=== PATIENT | female | born 2000 | race Caucasian/White ===

== ENCOUNTER 2019-03-07 09:05 | Emergency (ER) | payer SELFPAY ==
--- NOTE | 2019-03-07 09:49 | ER Document Report ---
ED Medical Screen (RME) - General Chief Complaint: Abdominal Pain Stated Complaint: STOMACH PAIN Time Seen by Provider: 03/07/19 09:41 Mode of Arrival: Ambulatory Information source: Patient TRAVEL OUTSIDE OF THE U.S. IN LAST 30 DAYS: No - HPI Patient complains to provider of: [facility] ABDO PAIN Notes: 03/07/19 09:47 Patient is here with complaints of abdominal pain. Patient is 17 weeks . This is her first . She has had ultrasounds in the past. Last ultrasound was at 12 weeks. She denies any specific complaints other than a possible small subchorionic hemorrhage in the past. States this morning she woke up with right lower abdominal pain that radiates into her right back. She has had nausea vomiting this morning. No fever. No diarrhea. She has had her appendix removed in the past. No history of kidney stones. Exam Nontoxic, no distress. Lungs clear and equal. Heart sounds normal. Tenderness to palpation of the right upper and lower abdomen with mild voluntary guarding. Right-sided CVA tenderness to percussion. Plan CBC, CMP, lipase, RhoGam work-up, urinalysis, quantitative hCG, pelvic ultrasound to assess the , right upper quadrant ultrasound to assess other causes of pain. An initial examination was made on the patient as part of the triage process, and it was determined a more comprehensive evaluation was necessary. Initial labs were ordered and patient was transferred to another provider in the ED who assumed care and finished evaluation and plan. - Related Data Allergies/Adverse Reactions: No Known Allergies Allergy (Verified 03/07/19 09:37) Physical Exam - Vital signs Vitals: Temp Pulse Resp BP Pulse Ox 97.8 F 82 18 109/64 98 03/07/19 09:20 03/07/19 09:20 03/07/19 09:20 03/07/19 09:20 03/07/19 09:20 Course - Vital Signs Vital signs: Temp Pulse Resp BP Pulse Ox 97.8 F 82 18 109/64 98 03/07/19 09:20 03/07/19 09:20 03/07/19 09:20 03/07/19 09:20 03/07/19 09:20
[2019-03-07 10:33] LABS: ABSOLUTE EOSINOPHILS # (AUTO) 0.2 10^3/uL (0.0-0.6); ABSOLUTE LYMPHOCYTES (AUTO) 1.3 10^3/uL (0.5-4.7); ABSOLUTE MONOCYTES (AUTO) 0.6 10^3/uL (0.1-1.4); ABSOLUTE NEUT (AUTO) 8.2 10^3/uL (1.7-8.2); BASOPHILS % (AUTO) 0.2 % (0-2); EOSINOPHILS % (AUTO) 1.5 % (0-6); HEMATOCRIT 38.5 % (36.0-47.0); HEMOGLOBIN 13.2 g/dL (12.0-15.5); LYMPHOCYTES % (AUTO) 12.5 % (13-45); MEAN CORPUSCULAR HEMOGLOBIN 30.3 pg (27.0-33.4); MEAN CORPUSCULAR HGB CONC 34.3 g/dL (32.0-36.0); MEAN CORPUSCULAR VOLUME 88 fl (80-97); MONOCYTES % (AUTO) 6.1 % (3-13); PLATELET COUNT 207 10^3/uL (150-450); RED BLOOD COUNT 4.36 10^6/uL (3.72-5.28); RED CELL DISTRIBUTION WIDTH 14.3 % (11.5-14.0); SEGMENTED NEUTROPHILS % (AUTO) 79.7 % (42-78); TOTAL CELLS COUNTED % (AUTO) 100 %; WHITE BLOOD COUNT 10.2 10^3/uL (4.0-10.5)
[2019-03-07 10:43] LABS: APPEARANCE,URINE CLOUDY; BILIRUBIN,URINE NEGATIVE (NEGATIVE); COLOR,URINE YELLOW; GLUCOSE, URINE NEGATIVE (NEGATIVE); KETONES,URINE NEGATIVE (NEGATIVE); LEUKOCYTE ESTERASE,URINE SMALL (NEGATIVE); NITRITE,URINE NEGATIVE (NEGATIVE); PROTEIN,URINE NEGATIVE (NEGATIVE); URINE SPECIFIC GRAVITY 1.016; UROBILINOGEN,URINE NEGATIVE mg/dL (<2.0)
--- NOTE | 2019-03-07 10:52 | ER Document Report ---
ED GI/ - General Chief Complaint: Abdominal Pain Stated Complaint: STOMACH PAIN Time Seen by Provider: 03/07/19 09:41 Mode of Arrival: Ambulatory Notes: 16-year-old female G1 at 17 weeks by ultrasound and presents today with the onset around 6 AM of some right middle abdominal discomfort. Mild radiation to the back. No fevers, dysuria, vaginal bleeding. Not associated with eating. No previous symptomatology to the similar location. Her TECHNICAL PRODUCT MANAGER care has been provided in [place] with a recent move here with her family. She denies any other aggravating or relieving factors. No vomiting or diarrhea. TRAVEL OUTSIDE OF THE U.S. IN LAST 30 DAYS: No - Related Data Allergies/Adverse Reactions: No Known Allergies Allergy (Verified 03/07/19 09:37) Past Medical History - General Information source: Patient - Social History Smoking Status: Never Smoker Chew tobacco use (# tins/day): No Frequency of alcohol use: None Drug Abuse: None Family History: Reviewed & Not Pertinent Patient has suicidal ideation: No Patient has homicidal ideation: No Pulmonary Medical History: Reports: Hx Asthma Neurological Medical History: Reports: Hx Migraine Renal/ Medical History: Denies: Hx Peritoneal Dialysis Psychiatric Medical History: Reports: Hx Depression Past Surgical History: Reports: Hx Appendectomy Review of Systems - Review of Systems Constitutional: denies: Fever EENT: denies: Eye discharge, Nose discharge Respiratory: denies: Short of breath Gastrointestinal: denies: Vomiting Genitourinary: denies: Dysuria Musculoskeletal: denies: Leg swelling Skin: Other - no hives. denies: Rash Neurological/Psychological: Other - no slurred speech -: Yes All other systems reviewed and negative Physical Exam - Vital signs Vitals: Temp Pulse Resp BP Pulse Ox 97.8 F 82 18 109/64 98 03/07/19 09:20 03/07/19 09:20 03/07/19 09:20 03/07/19 09:20 03/07/19 09:20 Notes: Reviewed vital signs and nursing note as charted by RN. CONSTITUTIONAL: Alert and oriented and responds appropriately to questions. Well-appearing; well-nourished HEAD: Normocephalic; atraumatic CARD: Regular rate and rhythm; no murmurs; symmetric distal pulses RESP: Normal chest excursion without splinting or tachypnea; breath sounds clear and equal bilaterally; no wheezes, no rhonchi, no rales ABD/GI: Normal bowel sounds; soft, mild tender to palpation of the right mid abdomen. No rebound or guarding; palpable fundus consistent with dates BACK: The back appears normal and is non-tender to palpation EXT: Normal ROM in all joints; non-tender to palpation; no edema SKIN: No acute lesions noted NEURO: CN 2-12 intact; 5/5 bilateral upper and lower extremity strength with sensation intact to light touch PSYCH: The patient's mood and manner are appropriate. Grooming and personal hygiene are appropriate. Course - Re-evaluation Re-evalutation: 03/07/19 10:51 Given the history and physical examination, we will obtain basic labs, ultrasound of the fetus, ultrasound of the right upper quadrant, obtain a urine analysis, and reassess. Vital signs are stable. Patient does not have an appendix with an appendectomy 2 years ago. I would like to evaluate for the possibility of gallbladder pain, pancreatitis, urinary tract infection, uterine rupture or pathology, or any other acute problems. Patient has had no vaginal bleeding. 03/07/19 13:10 Labs and urine analysis as recorded. Pelvis ultrasound as recorded. Exam is im proved. Transabdominal ultrasound is pending. Urine culture has been sent. 03/07/19 13:56 Labs, urinalysis, and imaging as recorded. Vital signs are stable. I will send a urine culture and start the patient on a short course of Macrobid with strict return precautions. Patient's pain is improved. I do believe the possibility of round ligament pain to be likely given the patient's first with a history of appendectomy. - Vital Signs Vital signs: Temp Pulse Resp BP Pulse Ox 98.0 F 70 18 90/46 L 100 03/07/19 13:55 03/07/19 13:55 03/07/19 13:55 03/07/19 13:55 03/07/19 13:55 - Laboratory Result Diagrams: 03/07/19 10:15 03/07/19 10:15 Laboratory results interpreted by me: 03/07/19 03/07/19 03/07/19 10:00 10:15 10:15 RDW 14.3 H Seg Neutrophils % 79.7 H Lymphocytes % 12.5 L Sodium 136.4 L Chloride 108 H Creatinine 0.45 L Glucose 71 L Albumin 3.6 L Beta HCG, Quant 27255.00 H Ur Leukocyte Esterase SMALL H Discharge - Discharge Clinical Impression: Right lateral abdominal pain Qualifiers: Weeks of gestation: 17 weeks Qualified Code(s): Z3A.17 - 17 weeks gestation of Condition: Good Disposition: HOME-ASSISTED LIVING Additional Instructions: Come back immediately for any increased pain, change in location or quality of pain, fevers or vomiting, or any other acute problems. Please follow-up with your TECHNICAL PRODUCT MANAGER for reassessment as well as the urine culture as we have discussed. Prescriptions: Nitrofurantoin/Nitrofuran Mac [Macrobid 100 mg Capsule] 1 tab PO BID #20 capsule
[2019-03-07 11:01] LABS: ALANINE AMINOTRANSFERASE 17 U/L (5-35); ALBUMIN 3.6 g/dL (3.7-5.6); ALKALINE PHOSPHATASE 52 U/L (50-135); ANION GAP 6 (5-19); ASPARTATE AMINO TRANSFERASE 24 U/L (5-30); BILIRUBIN,DIRECT 0.3 mg/dL (0.0-0.4); BILIRUBIN,TOTAL 0.5 mg/dL (0.2-1.3); BLOOD UREA NITROGEN 9 mg/dL (7-20); CALCIUM 9.2 mg/dL (8.4-10.2); CARBON DIOXIDE 22 mmol/L (22-30); CHLORIDE 108 mmol/L (98-107); GLUCOSE 71 mg/dL (75-110); LIPASE 78.9 U/L (23-300); POTASSIUM 4.4 mmol/L (3.6-5.0); SODIUM 136.4 mmol/L (137-145); TOTAL PROTEIN 6.7 g/dL (6.3-8.2)
--- NOTE | 2019-03-07 13:02 | RADIOLOGY REPORT (SQ) ---
EXAM DESCRIPTION: U/S OB 14+ TA/1 GEST W/DOPPLER COMPLETED DATE/TIME: 03/07/2019 12:51 pm REASON FOR STUDY: PREG 17 WEEKS, RLQ PAIN COMPARISON: None. TECHNIQUE: Static and Dynamic grayscale imaging performed of gravid uterus using transabdominal appr oach. Additional selected color Doppler and spectral images recorded. All stored on PACS. LIMITATIONS: None. FINDINGS: FETUSES SEEN:1 EGA: 17 weeks 2 days Calculated using BPD,FL,HC,AC documented on images. No discrepancy with clinica l dates. JANINE: 08/13/2019 EFW: 196 grams PERCENTILE: Not applicable. Fetus less than or equal to 20 weeks gestation. ASHOK: Adequate amount. PLACENTA: Anterior. GRADE: I PRESENTATION: Variable. ANATOMY: HEART RATE: 132 beats per minute. FOUR CHAMBER HEART: Not visualized. THREE VESSEL CORD: Not visualized. CORD INSERTION: Visualized. KIDNEYS AND BLADDER: Not visualized. STOMACH: Visualized. Appears normal. SPINE: Normal as visualized. BRAIN AND LATERAL VENTRICLES: Visualized. Appear normal. OTHER: MATERNAL ADNEXA: Maternal ovaries not visualized. CERVICAL LENGTH: 2.3 cm. Closed. OTHER: Maternal appendix not visualized. IMPRESSION: LIVING INTRAUTERINE . ESTIMATED GESTATIONAL AGE 17 weeks 2 days. NO VISUALIZED ANOMALIES. Trimester of : Second trimester - 13 weeks 1 day to 27 weeks 6 days. TECHNICAL DOCUMENTATION: JOB ID: [id number] [employer]- All Rights Reserved Reading location - IP/workstation name: [email or web address]
[2019-03-07] MEDS ORDERED: ACETAMINOPHEN 325 MG TABLET PO ONE (13:16)
--- NOTE | 2019-03-07 13:24 | RADIOLOGY REPORT (SQ) ---
EXAM DESCRIPTION: U/S ABDOMEN LIMITED W/O DOP COMPLETED DATE/TIME: 03/07/2019 12:58 pm REASON FOR STUDY: RUQ PAIN, FLANK PAIN COMPARISON: None. TECHNIQUE: Dynamic and static grayscale images acquired of the abdomen and recorded on PACS. Giselleo abdulaziz selected color Doppler and spectral images recorded. LIMITATIONS: None. FINDINGS: PANCREAS: No masses. Visualized pancreatic duct normal caliber. LIVER: No masses. Echotexture normal. LIVER VASCULATURE: Normal directional flow of the main portal vein and hepatic veins. GALLBLADDER: No stones. Normal wall thickness. No pericholecystic fluid. ULTRASOUND-DETECTED ALVARADO'S SIGN: Positive. INTRAHEPATIC DUCTS AND COMMON DUCT: CBD and intrahepatic ducts normal caliber. No filling defects. INFERIOR VENA CAVA: Normal flow. AORTA: No aneurysm. RIGHT KIDNEY: Normal size. Normal echogenicity. No solid or suspicious masses. No hydronephrosis. No calcifications. PERITONEAL AND RIGHT PLEURAL SPACE: No ascites or effusions. OTHER: No other significant findings. IMPRESSION: No pathology identified however the Alvarado's sign is listed as positive because of the tenderness right upper quadrant and right abdomen. TECHNICAL DOCUMENTATION: JOB ID: [id number] [employer]- All Rights Reserved Reading location - IP/workstation name: [email or web address]
[2019-03-07 13:56] VITALS: BP 90/46
[2019-03-07] MEDS ORDERED: NITROFURANTOIN MONOHYD/M-CRYST 100 MG CAPSULE PO ONE (13:59)
== END 2019-03-07 14:17 | disposition home health service (06) ==
LOC: ER 09:05
DX: O26.92 Pregnancy related conditions, unspecified, second trimester (principal); R10.9 Unspecified abdominal pain; Z3A.17 17 weeks gestation of pregnancy
CPT/HCPCS: 99284; 86900; 86901; 36415; 87086; 84702; 83690; 85025; 80053; 81001; 76805; 76705; 93976; J8499

== ENCOUNTER 2019-05-19 11:12 | Emergency (ER) | payer MEDICAID ==
[2019-05-19 11:16] VITALS: BP 100/67
--- NOTE | 2019-05-19 11:30 | ER Document Report ---
ED Medical Screen (RME) - General Chief Complaint: Abdominal Pain Stated Complaint: ABDOMINAL PAIN Time Seen by Provider: 05/19/19 11:21 Mode of Arrival: Ambulatory Information source: Patient Notes: Patient presents emergency department with right upper quad right flank pain for the past week.. Patient is 27 weeks G1, P0. Patient reports she vomited yesterday. Reports urinary frequency as usual. Denies vaginal bleeding denies vaginal discharge. Patient has just moved here from [place]. Does not have a BRANCH OPERATIONS COORDINATOR yet. Is not taking vitamins. Patient reports she was t old there was some kind of questionable tear next to the sac?. Denies trauma, fever or diarrhea. Right upper quad and right flank pain tender to palpate. I have greeted and performed a rapid initial assessment of this patient. A comprehensive ED assessment and evaluation of the patient, analysis of test results and completion of the medical decision making process will be conducted by additional ED providers. Dictation of this chart was performed using voice recognition software; therefore, there may be some unintended grammatical errors. TRAVEL OUTSIDE OF THE U.S. IN LAST 30 DAYS: No - Related Data Allergies/Adverse Reactions: No Known Allergies Allergy (Verified 05/19/19 11:13) Past Medical History - Social History Chew tobacco use (# tins/day): No Frequency of alcohol use: None Drug Abuse: None Pulmonary Medical History: Reports: Hx Asthma Neurological Medical History: Reports: Hx Migraine Renal/ Medical History: Denies: Hx Peritoneal Dialysis Psychiatric Medical History: Reports: Hx Depression Past Surgical History: Reports: Hx Appendectomy Physical Exam - Vital signs Vitals: Temp Pulse Resp BP Pulse Ox 97.9 F 102 H 16 100/67 98 05/19/19 11:15 05/19/19 11:15 05/19/19 11:15 05/19/19 11:15 05/19/19 11:15 Course - Vital Signs Vital signs: Temp Pulse Resp BP Pulse Ox 97.9 F 102 H 16 100/67 98 05/19/19 11:15 05/19/19 11:15 05/19/19 11:15 05/19/19 11:15 05/19/19 11:15
[2019-05-19 11:52] LABS: ABSOLUTE EOSINOPHILS # (AUTO) 0.1 10^3/uL (0.0-0.6); ABSOLUTE LYMPHOCYTES (AUTO) 1.6 10^3/uL (0.5-4.7); ABSOLUTE MONOCYTES (AUTO) 0.7 10^3/uL (0.1-1.4); ABSOLUTE NEUT (AUTO) 7.9 10^3/uL (1.7-8.2); AMORPHOUS SEDIMENT,URINE TRACE /HPF; BASOPHILS % (AUTO) 0.2 % (0-2); EOSINOPHILS % (AUTO) 1.3 % (0-6); LYMPHOCYTES % (AUTO) 15.6 % (13-45); MEAN CORPUSCULAR HEMOGLOBIN 29.7 pg (27.0-33.4); MEAN CORPUSCULAR HGB CONC 33.5 g/dL (32.0-36.0); MEAN CORPUSCULAR VOLUME 89 fl (80-97); MONOCYTES % (AUTO) 6.9 % (3-13); PLATELET COUNT 205 10^3/uL (150-450); RED BLOOD COUNT 4.05 10^6/uL (3.72-5.28); RED CELL DISTRIBUTION WIDTH 13.7 % (11.5-14.0); TOTAL CELLS COUNTED % (AUTO) 100 %; WHITE BLOOD COUNT 10.4 10^3/uL (4.0-10.5)
[2019-05-19 11:56] LABS: APPEARANCE,URINE HAZY; BILIRUBIN,URINE NEGATIVE (NEGATIVE); COLOR,URINE STRAW; GLUCOSE, URINE NEGATIVE (NEGATIVE); KETONES,URINE NEGATIVE (NEGATIVE); LEUKOCYTE ESTERASE,URINE SMALL (NEGATIVE); NITRITE,URINE NEGATIVE (NEGATIVE); PROTEIN,URINE NEGATIVE (NEGATIVE); URINE SPECIFIC GRAVITY 1.007; UROBILINOGEN,URINE NEGATIVE mg/dL (<2.0)
[2019-05-19 12:05] LABS: ALANINE AMINOTRANSFERASE 24 U/L (5-35); ALBUMIN 3.4 g/dL (3.7-5.6); ALKALINE PHOSPHATASE 66 U/L (50-135); ANION GAP 8 (5-19); ASPARTATE AMINO TRANSFERASE 20 U/L (5-30); BILIRUBIN,DIRECT 0.1 mg/dL (0.0-0.4); BILIRUBIN,TOTAL 0.1 mg/dL (0.2-1.3); BLOOD UREA NITROGEN 10 mg/dL (7-20); CARBON DIOXIDE 24 mmol/L (22-30); CHLORIDE 106 mmol/L (98-107); GLUCOSE 87 mg/dL (75-110); LIPASE 114.6 U/L (23-300); POTASSIUM 4.1 mmol/L (3.6-5.0); SODIUM 138.4 mmol/L (137-145); TOTAL PROTEIN 6.4 g/dL (6.3-8.2)
[2019-05-19 12:12] LABS: URINE AMPHETAMINES SCREEN NEGATIVE; URINE BARBITURATES SCREEN NEGATIVE; URINE BENZODIAZEPINES SCREEN NEGATIVE; URINE COCAINE SCREEN NEGATIVE; URINE MARIJUANA (THC) SCREEN NEGATIVE; URINE METHADONE SCREEN NEGATIVE; URINE PHENCYCLIDINE SCREEN NEGATIVE
--- NOTE | 2019-05-19 12:19 | ER Document Report ---
ED GI/ - General Chief Complaint: Abdominal Pain Stated Complaint: ABDOMINAL PAIN Time Seen by Provider: 05/19/19 11:21 Mode of Arrival: Ambulatory Information source: Patient, Relative TRAVEL OUTSIDE OF THE U.S. IN LAST 30 DAYS: No - HPI Patient complains to provider of: Abdominal pain - pt is G1 approx 27 weeks along with onset of RUQ abdominal pain interimttent for the past several days along with some R upper back pain. Denies trauma. - Related Data Allergies/Adverse Reactions: No Known Allergies Allergy (Verified 05/19/19 11:13) Past Medical History - General Information source: Patient - Social History Smoking Status: Never Smoker Chew tobacco use (# tins/day): No Frequency of alcohol use: None Drug Abuse: None Family History: Reviewed & Not Pertinent Patient has suicidal ideation: No Patient has homicidal ideation: No Pulmonary Medical History: Reports: Hx Asthma Neurological Medical History: Reports: Hx Migraine Renal/ Medical History: Denies: Hx Peritoneal Dialysis Psychiatric Medical History: Reports: Hx Depression Past Surgical History: Reports: Hx Appendectomy Review of Systems - Review of Systems Constitutional: No symptoms reported EENT: No symptoms reported Cardiovascular: No symptoms reported Respiratory: No symptoms reported Gastrointestinal: See HPI, Abdominal pain Female Genitourinary: No symptoms reported Musculoskeletal: See HPI, Back pain Neurological/Psychological: No symptoms reported -: Yes All other systems reviewed and negative Physical Exam - Vital signs Vitals: Temp Pulse Resp BP Pulse Ox 97.9 F 102 H 16 100/67 98 05/19/19 11:15 05/19/19 11:15 05/19/19 11:15 05/19/19 11:15 05/19/19 11:15 - General General appearance: Appears well In distress: Mild - HEENT Mucous membranes: Normal Pharynx: Normal Neck: Normal - Respiratory Respiratory status: No respiratory distress Breath sounds: Normal - Cardiovascular Rhythm: Regular Heart sounds: Normal auscultation Murmur: No - Abdominal Inspection: Normal Distension: No distension Bowel sounds: Normal Tenderness: Tender - There is min-mod TTP of the RUQ diffusely with neg. Alvarado's sign. BS+ and no peritoneal signs - Back Back: Normal, Nontender - Extremities General upper extremity: Normal inspection General lower extremity: Normal inspection - Neurological Neuro grossly intact: Yes Cognition: Normal Orientation: AAOx4 Course - Re-evaluation Re-evalutation: 05/19/19 13:14 Pt. feels better at time of d/c -- I have explained to her that there is sludge in her GB but mostlikely will have to postpone surgery until after she delivers. She is ok with this and has expressed desire to go home - Vital Signs Vital signs: Temp Pulse Resp BP Pulse Ox 97.9 F 102 H 16 100/67 98 05/19/19 11:15 05/19/19 11:15 05/19/19 11:15 05/19/19 11:15 05/19/19 11:15 - Laboratory Result Diagrams: 05/19/19 11:35 05/19/19 11:35 Laboratory results interpreted by me: 05/19/19 05/19/19 11:35 11:35 Creatinine 0.45 L Total Bilirubin 0.1 L Albumin 3.4 L Ur Leukocyte Esterase SMALL H - Diagnostic Test Radiology reviewed: Reports reviewed - sludge in GB. OB U/S is normal Discharge - Discharge Clinical Impression: Gall bladder disease Condition: Stable Disposition: HOME, SELF-CARE Instructions: Abdominal Pain ([facility]), Gallbladder Disease ([facility]), Low-Fat Diet ([facility]) Additional Instructions: rest, liquids for 24 hrs., return if worse Referrals: MENG MORALES MD [ACTIVE STAFF] - Follow up as needed
--- NOTE | 2019-05-19 12:34 | RADIOLOGY REPORT (SQ) ---
EXAM DESCRIPTION: U/S OB LIMITED COMPLETED DATE/TIME: 05/19/2019 12:18 pm REASON FOR STUDY: ruq, right flank pain, 27 weeks preg COMPARISON: Abdominal ultrasound 05/19/2019 TECHNIQUE: Limited transabdominal grayscale ultrasound for evaluation of specific requested obstetri renan parameters. LIMITATIONS: None. FINDINGS: CERVICAL LENGTH: 3.6 cm in length Closed. ASHOK: Total ASHOK 7.7 cm. FHR: 135 beats per minute. PRESENTATION: Breech PLACENTA: Anterior, grade 1 ANATOMY: Not assessed OTHER: No other significant findings. IMPRESSION: LIMITED OBSTETRICAL ULTRASOUND WITH MEASURED PARAMETERS DELINEATED ABOVE. Trimester of : Second trimester - 13 weeks 1 day to 27 weeks 6 days. TECHNICAL DOCUMENTATION: JOB ID: [id number] [employer]- All Rights Reserved Reading location - IP/workstation name: [email or web address]
--- NOTE | 2019-05-19 12:36 | RADIOLOGY REPORT (SQ) ---
EXAM DESCRIPTION: U/S ABDOMEN COMPLETE W/DOPPLER COMPLETED DATE/TIME: 05/19/2019 12:19 pm REASON FOR STUDY: ruq, right flank pain, 27 weeks preg COMPARISON: OB ultrasound same date Right upper quadrant ultrasound 03/07/2019 TECHNIQUE: Dynamic and static grayscale images acquired of the abdomen and recorded on PACS. Additio nal selected color Doppler and spectral images recorded. Note: Study does not meet criteria for complete doppler/duplex scan LIMITATIONS: , midline bowel gas FINDINGS: PANCREAS: Midline pancreas unremarkable LIVER: No masses. Echotexture normal. LIVER VASCULATURE: Normal directional flow of the main portal vein and hepatic veins. GALLBLADDER: Sludge in the gallbladder. No stones. No gallbladder wall thickening. Negative sonogr aphic Alvarado's sign ULTRASOUND-DETECTED ALVARADO'S SIGN: Negative. INTRAHEPATIC DUCTS AND COMMON DUCT: CBD and intrahepatic ducts normal caliber. No filling defects. INFERIOR VENA CAVA: Normal flow. AORTA: No aneurysm. RIGHT KIDNEY: Right kidney is 10 cm in length. Not well-visualized. LEFT KIDNEY: Left kidney is 10 cm in length, no hydronephrosis. SPLEEN: Normal size. No solid masses. PERITONEAL AND PLEURAL SPACES: No ascites or effusions. OTHER: No other significant finding. IMPRESSION: Sludge in the gallbladder. Right kidney not well seen by ultrasound TECHNICAL DOCUMENTATION: JOB ID: [id number] [employer]- All Rights Reserved Reading location - IP/workstation name: [email or web address]
== END 2019-05-19 13:40 | disposition home or self-care (01) ==
LOC: ER 11:12
DX: O99.612 Diseases of the digestive system complicating pregnancy, second trimester (principal); K82.9 Disease of gallbladder, unspecified; O26.892 Other specified pregnancy related conditions, second trimester; R10.9 Unspecified abdominal pain; R10.11 Right upper quadrant pain; M54.6 Pain in thoracic spine; O99.512 Diseases of the respiratory system complicating pregnancy, second trimester; J45.909 Unspecified asthma, uncomplicated; Z3A.27 27 weeks gestation of pregnancy
CPT/HCPCS: 36415; 76700; 76815; 80053; 80307; 81001; 83690; 85025; 93976; 99284

== ENCOUNTER 2019-05-22 06:08 | Emergency (ER) | payer MEDICAID ==
[2019-05-22] MEDS ORDERED: ONDANSETRON 4 MG TAB.RAPDIS PO ONE (08:37)
[2019-05-22 09:28] LABS: APPEARANCE,URINE CLEAR; BILIRUBIN,URINE NEGATIVE (NEGATIVE); COLOR,URINE STRAW; GLUCOSE, URINE NEGATIVE (NEGATIVE); KETONES,URINE NEGATIVE (NEGATIVE)
[2019-05-22 09:29] LABS: LEUKOCYTE ESTERASE,URINE NEGATIVE (NEGATIVE); NITRITE,URINE NEGATIVE (NEGATIVE); PROTEIN,URINE NEGATIVE (NEGATIVE); UROBILINOGEN,URINE NEGATIVE mg/dL (<2.0)
--- NOTE | 2019-05-22 09:49 | ER Document Report ---
ED General - General Chief Complaint: Nose Bleed Stated Complaint: NOSE DRAINAGE Time Seen by Provider: 05/22/19 08:11 Primary Care Provider: CYNDEE ROY MD [ACTIVE STAFF] - Follow up as needed MISTY IRIZARRY DO [ASSOCIATE] - Follow up as needed Notes: Patient is a 18-year-old female presents to the emergency department with a chief complaint of intermittent nosebleeds. Patient states that she is an estimated 27 weeks and has had more frequent nosebleeds over the past few days. Patient states that typically the nosebleeds occur when she blows her nose but she did wake up this morning with blood on her pillow. Patient states the blood is bright red in color. Patient denies recent cough or cold. Patient states she does have a history of nosebleeds in which she needed to see an ENT for. Patient states that she was told if no please return she may have to have cauterization performed by the ENT. Patient states that since she is she has had more frequent nosebleeds. Patient denies headaches. Patient states she was also seen in the emergency department on Tuesday for right upper quadrant pain. Patient states that the right upper quadrant pain is now gone. States she woke up this morning with lower abdominal pain. Patient denies vaginal bleeding or discharge. Patient states that the pain was sharp in nature. Patient states now the pain seems to be localized to the right lower quadrant. She denies urinary symptoms. She states last time she saw her OB was at 12 weeks . Patient states they recently moved from [place] and is working with [facility] to obtain a primary care physician. TRAVEL OUTSIDE OF THE [place] IN LAST 30 DAYS: No - Related Data Allergies/Adverse Reactions: No Known Allergies Allergy (Verified 05/22/19 06:17) Past Medical History - General Information source: Patient - Social History Smoking Status: Unknown if Ever Smoked Cigarette use (# per day): No Chew tobacco use (# tins/day): No Smoking Education Provided: No Frequency of alcohol use: None Drug Abuse: None Lives with: Spouse/Significant other Family History: Reviewed & Not Pertinent Patient has suicidal ideation: No Patient has homicidal ideation: No - Past Medical History Cardiac Medical History: Reports: None Pulmonary Medical History: Reports: Hx Asthma EENT Medical History: Reports: None Neurological Medical History: Reports: Hx Migraine Endocrine Medical History: Reports: None Renal/ Medical History: Reports: None. Denies: Hx Peritoneal Dialysis Malignancy Medical History: Reports: None GI Medical History: Reports: None Musculoskeletal Medical History: Reports None Skin Medical History: Reports None Psychiatric Medical History: Reports: Hx Depression Traumatic Medical History: Reports: None Infectious Medical History: Reports: None Past Surgical History: Reports: Hx Appendectomy Review of Systems - Review of Systems Constitutional: No symptoms reported EENT: See HPI Cardiovascular: No symptoms reported Respiratory: No symptoms reported Gastrointestinal: See HPI Genitourinary: No symptoms reported Female Genitourinary: No symptoms reported Musculoskeletal: No symptoms reported Skin: No symptoms reported Hematologic/Lymphatic: No symptoms reported Neurological/Psychological: No symptoms reported Physical Exam - Vital signs Vitals: Temp Pulse Resp BP Pulse Ox 97.7 F 77 16 102/63 97 05/22/19 06:17 05/22/19 06:17 05/22/19 06:17 05/22/19 06:17 05/22/19 06:17 Interpretation: Normal - Notes Notes: GENERAL: Well-appearing, well-nourished and in no acute distress. HEAD: Atraumatic, normocephalic. EYES: Pupils equal round and reactive to light, extraocular movements intact, sclera anicteric, conjunctiva are normal. ENT: TMs normal, nares patent with small amount of dried blood noted to bilateral nares, oropharynx clear without exudates. Moist mucous membranes. NECK: Normal range of motion, supple without lymphadenopathy or JVD. LUNGS: Breath sounds clear to auscultation bilaterally and equal. No wheezes rales or rhonchi. HEART: Regular rate and rhythm without murmurs, rubs or gallops. ABDOMEN: Soft, generalized lower abdominal tenderness - worse in RLQ, normoactive bowel sounds. No guarding, no rebound. No masses appreciated. BACK: No cervical, thoracic, lumbar midline tenderness. No saddle anesthesia, normal distal neurovascular exam. GENITOURINARY: Deferred. EXTREMITIES: Normal range of motion, no pitting or edema. No clubbing or cyanosis. NEUROLOGICAL: Cranial nerves II through XII grossly intact. Normal speech, normal gait. PSYCH: Normal mood, normal affect. SKIN: Warm, Dry, normal turgor, no rashes or lesions noted. Course - Re-evaluation Re-evalutation: 05/22/19 09:49 Received Zofran patient states that her nausea has improved. Patient continues to complain of lower abdominal discomfort that radiates to the right lower quadrant. Patient has had her appendix removed. Patient continues denies vagin al bleeding or discharge. Patient denies vomiting. Patient has not had a nosebleed since being in the emergency department. 05/22/19 10:[address] Cyndee Roy who is on-call for INSOLVENCY PRACTITIONER. Discussed the patient's case including the frequent nosebleeds as well as the lower abdominal pain. I did inform her that the patient has had her appendix removed. She states that this could be round ligament pain. See suggest taking Tylenol 650 mg every 6 hours as needed as well as Benadryl 12.5 milligrams every 6 hours as needed for the lower abdominal pain. She did reiterate the importance of establishing an INSOLVENCY PRACTITIONER in the area for follow-up. I did discuss this with the patient who states that they are working on it through [employer]. I will refer the patient to ears nose and throat she continues to have frequent nosebleeds. I did inform her that during frequent nosebleeds are normal. Educate the patient with Tylenol Benadryl prior to discharge. Patient and her signif icant other verbalized understanding and denies questions at this time. Patient placed on strict return precautions. Did report that the heart tones were 135. - Vital Signs Vital signs: Temp Pulse Resp BP Pulse Ox 97.9 F 68 16 104/65 99 05/22/19 09:52 05/22/19 09:52 05/22/19 09:52 05/22/19 09:52 05/22/19 09:52 Discharge - Discharge Clinical Impression: Nasal bleeding, Round ligament pain Qualifiers: Weeks of gestation: 27 weeks Qualified Code(s): Z3A.27 - 27 weeks gestation of Condition: Stable Disposition: HOME, SELF-CARE Additional Instructions: Today you were seen in the department for nosebleeds and lower abdominal pain. You have not had a nosebleed since your emergency department visit. Nosebleeds and are common. I will refer you to ears nose and throat if you continue to have frequent nosebleeds that are persistent. The lower abdominal pain that you are having is consistent with round ligament pain. I did speak with the on-call INSOLVENCY PRACTITIONER Dr. Roy who states it is imperative that you obtain INSOLVENCY PRACTITIONER care as you are 27 weeks . She suggest taking Tylenol 650 mg every 6 hours as needed for this lower abdominal pain. She states you can also take 12.5 mg of Benadryl with the Tylenol every 6 hours. Please return to the emergency department for any concerning signs or symptoms to include uncontrollable abdominal pain that is not relieved with the medication, vaginal bleeding or discharge or any other concerning signs or symptoms. Referrals: CYNDEE ROY MD [ACTIVE STAFF] - Follow up as needed MISTY IRIZARRY DO [ASSOCIATE] - Follow up as needed
[2019-05-22] MEDS ORDERED: ACETAMINOPHEN 325 MG TABLET PO ONE (11:04)
[2019-05-22] MEDS ORDERED: DIPHENHYDRAMINE HCL 25 MG CAPSULE PO ONE (11:04)
[2019-05-22 11:22] VITALS: BP 119/68
== END 2019-05-22 11:22 | disposition home or self-care (01) ==
LOC: ER 06:08
DX: O26.892 Other specified pregnancy related conditions, second trimester (principal); R04.0 Epistaxis; R10.30 Lower abdominal pain, unspecified; O99.512 Diseases of the respiratory system complicating pregnancy, second trimester; J45.909 Unspecified asthma, uncomplicated; Z3A.27 27 weeks gestation of pregnancy
CPT/HCPCS: 99284; 81001; J3490 ×2; S0119

== ENCOUNTER 2019-07-31 06:55 | Outpatient (CLI) | payer MEDICAID ==
[2019-07-31 08:03] LABS: APPEARANCE,URINE HAZY; BILIRUBIN,URINE NEGATIVE (NEGATIVE); COLOR,URINE COLORLESS; GLUCOSE, URINE NEGATIVE (NEGATIVE); KETONES,URINE NEGATIVE (NEGATIVE); LEUKOCYTE ESTERASE,URINE LARGE (NEGATIVE); NITRITE,URINE NEGATIVE (NEGATIVE); PROTEIN,URINE NEGATIVE (NEGATIVE); UROBILINOGEN,URINE NEGATIVE mg/dL (<2.0)
[2019-07-31 08:05] LABS: URINE SPECIFIC GRAVITY 1.009
[2019-07-31 08:20] LABS: URINE AMPHETAMINES SCREEN NEGATIVE; URINE BARBITURATES SCREEN NEGATIVE; URINE BENZODIAZEPINES SCREEN NEGATIVE; URINE COCAINE SCREEN NEGATIVE; URINE MARIJUANA (THC) SCREEN NEGATIVE; URINE METHADONE SCREEN NEGATIVE; URINE PHENCYCLIDINE SCREEN NEGATIVE
[2019-07-31] MEDS ORDERED: ONDANSETRON HCL INJ/PF 4 MG/2 ML SDV IV PRN (08:28)
[2019-07-31] MEDS ORDERED: RINGERS SOLUTION,LACTATED 1,000 ML IV PRN (08:30)
[2019-07-31] MEDS ORDERED: ONDANSETRON HCL INJ/PF 4 MG/2 ML SDV ONE (08:32)
[2019-07-31 09:14] LABS: ABSOLUTE EOSINOPHILS # (AUTO) 0.1 10^3/uL (0.0-0.6); ABSOLUTE LYMPHOCYTES (AUTO) 2.3 10^3/uL (0.5-4.7); ABSOLUTE MONOCYTES (AUTO) 0.7 10^3/uL (0.1-1.4); ABSOLUTE NEUT (AUTO) 6.3 10^3/uL (1.7-8.2); BASOPHILS % (AUTO) 0.3 % (0-2); EOSINOPHILS % (AUTO) 1.3 % (0-6); HEMOGLOBIN 10.8 g/dL (12.0-15.5); LYMPHOCYTES % (AUTO) 23.8 % (13-45); MEAN CORPUSCULAR HGB CONC 32.8 g/dL (32.0-36.0); MEAN CORPUSCULAR VOLUME 82 fl (80-97); MONOCYTES % (AUTO) 7.7 % (3-13); PLATELET COUNT 196 10^3/uL (150-450); RED BLOOD COUNT 4.02 10^6/uL (3.72-5.28); RED CELL DISTRIBUTION WIDTH 14.2 % (11.5-14.0); SEGMENTED NEUTROPHILS % (AUTO) 66.9 % (42-78); TOTAL CELLS COUNTED % (AUTO) 100 %; WHITE BLOOD COUNT 9.5 10^3/uL (4.0-10.5)
[2019-07-31 09:33] LABS: ALBUMIN 3.1 g/dL (3.5-5.0); ALKALINE PHOSPHATASE 119 U/L (38-126); AMYLASE 56 U/L (30-110); ANION GAP 6 (5-19); ASPARTATE AMINO TRANSFERASE 20 U/L (14-36); BILIRUBIN,TOTAL 0.4 mg/dL (0.2-1.3); BLOOD UREA NITROGEN 7 mg/dL (7-20); CALCIUM 8.8 mg/dL (8.4-10.2); CARBON DIOXIDE 22 mmol/L (22-30); CHLORIDE 107 mmol/L (98-107); GLUCOSE 74 mg/dL (75-110); POTASSIUM 4.1 mmol/L (3.6-5.0); TOTAL PROTEIN 6.1 g/dL (6.3-8.2)
--- NOTE | 2019-07-31 11:23 | Non Stress Test Report ---
Non Stress Test Datetime Report Generated by CPN: 07/31/2019 11:23 DEMOGRAPHIC Test Number: 1 EGA NST: 37.6 INDICATION Indication for Study: Ordered by Provider; Other Indication for Study (NST) Other: abdominal pain VITAL SIGNS Temperature - NST: 96.9 Pulse - NST: 79 RESP - NST: 18 NBPSYS NST: 93 NBPDIA NST: 51 MONITORING Monitor Explained: Monitor Explained; Test Explained; Patient Verbalized Understanding; Other Time on Monitor: 07/31/2019 07:16 Time off Monitor: 07/31/2019 11:10 NST Duration: 234 NST INTERVENTIONS NST Interventions: PO Hydration; IV Fluids Physician Notified NST: N. Doty CNM BABY A: [id number] BABY A Movement : Decreased Contraction Frequency : irregular FHR Baseline : 120 Accelerations : 15X15 Decelerations : None Variability : Moderate 6-25bpm NST Review: Meets Criteria for Reactive NST NST Review and Verified By : SAutry NST Results: Reactive NST REPORT Report Trigger: Send Report
== END 2019-07-31 11:26 | disposition home or self-care (01) ==
LOC: LC 06:55
PROVIDERS: ATTEND Obstetrics & Gynecology
PROC: 4A1HXCZ Monitoring of Products of Conception, Cardiac Rate, External Approach (ICD-10-PCS; principal; 2019-07-31)
DX: O36.8130 Decreased fetal movements, third trimester, not applicable or unspecified (principal); O26.893 Other specified pregnancy related conditions, third trimester; R10.9 Unspecified abdominal pain; R19.7 Diarrhea, unspecified; Z3A.37 37 weeks gestation of pregnancy
CPT/HCPCS: 59025; 36415; 82150; 83690; 85025; 81005; 80053; 80307; J2405

== ENCOUNTER 2019-12-08 16:17 | Emergency (ER) | payer MEDICAID, OTHER ==
[2019-12-08] MEDS ORDERED: ONDANSETRON HCL INJ/PF 4 MG/2 ML SDV IV ONE ×2 (17:29→19:57)
[2019-12-08] MEDS ORDERED: MORPHINE SULFATE 10 MG/ML INJ IV ONE ×2 (17:29→19:57)
--- NOTE | 2019-12-08 17:29 | ER Document Report ---
ED Medical Screen (RME) - General Chief Complaint: Abdominal Pain Stated Complaint: ABDOMINAL PAIN, BACK PAIN Time Seen by Provider: 12/08/19 17:14 Mode of Arrival: Ambulatory Information source: Patient Notes: 19-year-old female patient presents the emergency department chief complaint of right upper quadrant abdominal pain as well as right flank pain. Patient reports history of gallbladder issues, states that she just had a baby a few months ago, states pain has worsened since then. Patient reports vomiting over the last 2 days. Denies any diarrhea or fevers. Tenderness in the right upper quadrant. I have greeted and performed a rapid initial assessment of this patient. A comprehensive ED assessment and evaluation of the patient, analysis of test results and completion of the medical decision making process will be conducted by additional ED providers. I have specifically instructed the patient or family members with the patient to immediately return to any nursing staff should anything change in the patient's condition or with their chief complaint. TRAVEL OUTSIDE OF THE [place] IN LAST 30 DAYS: No - Related Data Allergies/Adverse Reactions: sumatriptan [From Imitrex] Adverse Reaction (Verified 12/08/19 17:13) Past Medical History - Social History Chew tobacco use (# tins/day): No Frequency of alcohol use: None Drug Abuse: None Pulmonary Medical History: Reports: Hx Asthma Neurological Medical History: Reports: Hx Migraine Renal/ Medical History: Denies: Hx Peritoneal Dialysis Psychiatric Medical History: Reports: Hx Depression Past Surgical History: Reports: Hx Appendectomy Physical Exam - Vital signs Vitals: Temp Pulse Resp BP Pulse Ox 98 F 78 20 99/53 L 99 12/08/19 16:23 12/08/19 16:23 12/08/19 16:23 12/08/19 16:23 12/08/19 16:23 Course - Vital Signs Vital signs: Temp Pulse Resp BP Pulse Ox 98 F 78 20 99/53 L 99 12/08/19 16:23 12/08/19 16:23 12/08/19 16:23 12/08/19 16:23 12/08/19 16:23 - Laboratory Result Diagrams: 12/08/19 17:30 12/08/19 17:30
[2019-12-08 18:06] LABS: ABSOLUTE EOSINOPHILS # (AUTO) 0.2 10^3/uL (0.0-0.6); ABSOLUTE LYMPHOCYTES (AUTO) 1.4 10^3/uL (0.5-4.7); ABSOLUTE MONOCYTES (AUTO) 0.6 10^3/uL (0.1-1.4); ABSOLUTE NEUT (AUTO) 11.3 10^3/uL (1.7-8.2); BASOPHILS % (AUTO) 0.2 % (0-2); EOSINOPHILS % (AUTO) 1.3 % (0-6); HEMATOCRIT 37.7 % (36.0-47.0); HEMOGLOBIN 12.8 g/dL (12.0-15.5); LYMPHOCYTES % (AUTO) 10.7 % (13-45); MEAN CORPUSCULAR HEMOGLOBIN 28.6 pg (27.0-33.4); MEAN CORPUSCULAR HGB CONC 33.9 g/dL (32.0-36.0); MEAN CORPUSCULAR VOLUME 84 fl (80-97); MONOCYTES % (AUTO) 4.3 % (3-13); PLATELET COUNT 224 10^3/uL (150-450); RED BLOOD COUNT 4.47 10^6/uL (3.72-5.28); RED CELL DISTRIBUTION WIDTH 14.6 % (11.5-14.0); SEGMENTED NEUTROPHILS % (AUTO) 83.5 % (42-78); TOTAL CELLS COUNTED % (AUTO) 100 %; WHITE BLOOD COUNT 13.5 10^3/uL (4.0-10.5)
[2019-12-08 18:11] LABS: APPEARANCE,URINE CLOUDY; BILIRUBIN,URINE NEGATIVE (NEGATIVE); COLOR,URINE RED; GLUCOSE, URINE 50 mg/dL (NEGATIVE); KETONES,URINE NEGATIVE (NEGATIVE); LEUKOCYTE ESTERASE,URINE SMALL (NEGATIVE); NITRITE,URINE NEGATIVE (NEGATIVE); PROTEIN,URINE >=500 mg/dL (NEGATIVE); URINE SPECIFIC GRAVITY 1.027; UROBILINOGEN,URINE NEGATIVE mg/dL (<2.0)
[2019-12-08 18:32] LABS: ALBUMIN 4.1 g/dL (3.5-5.0); ALKALINE PHOSPHATASE 80 U/L (38-126); ANION GAP 7 (5-19); ASPARTATE AMINO TRANSFERASE 32 U/L (14-36); BILIRUBIN,TOTAL 0.6 mg/dL (0.2-1.3); BLOOD UREA NITROGEN 13 mg/dL (7-20); CALCIUM 9.1 mg/dL (8.4-10.2); CARBON DIOXIDE 25 mmol/L (22-30); CHLORIDE 108 mmol/L (98-107); GLUCOSE 70 mg/dL (75-110); TOTAL PROTEIN 7.4 g/dL (6.3-8.2)
--- NOTE | 2019-12-08 18:45 | RADIOLOGY REPORT (SQ) ---
EXAM DESCRIPTION: U/S ABDOMEN LIMITED W/O DOP COMPLETED DATE/TIME: 12/08/2019 6:24 pm REASON FOR STUDY: RUQ pain COMPARISON: None. TECHNIQUE: Dynamic and static grayscale images acquired of the abdomen and recorded on PACS. Additio nal selected color Doppler and spectral images recorded. LIMITATIONS: None. FINDINGS: PANCREAS: No masses. Visualized pancreatic duct normal caliber. LIVER: No masses. Echotexture normal. LIVER VASCULATURE: Normal directional flow of the main portal vein and hepatic veins. GALLBLADDER: No stones identified. Normal wall thickness. Small amount of pericholecystic fluid. ULTRASOUND-DETECTED PEARSON'S SIGN: Positive. INTRAHEPATIC DUCTS AND COMMON DUCT: CBD and intrahepatic ducts normal caliber. No filling defects. INFERIOR VENA CAVA: Normal flow. AORTA: No aneurysm identified. RIGHT KIDNEY: Normal size. Normal echogenicity. No solid or suspicious masses. No hydronephros is. No calcifications. PERITONEAL AND RIGHT PLEURAL SPACE: No ascites or effusions. OTHER: No other significant findings. IMPRESSION: No stones identified. Normal wall thickness. Small amount of pericholecystic fluid. ULTRASOUND-DETECTED PEARSON'S SIGN: Positive. TECHNICAL DOCUMENTATION: JOB ID: [id number] [id number] 2010 [id number]- All Rights Reserved Reading location - IP/workstation name: [email or web address]
--- NOTE | 2019-12-08 22:29 | ER Document Report ---
ED GI/ - General Chief Complaint: Abdominal Pain Stated Complaint: ABDOMINAL PAIN, BACK PAIN Time Seen by Provider: 12/08/19 17:14 Primary Care Provider: LENIN JARVIS MD [ACTIVE STAFF] - Follow up in 3-5 days Mode of Arrival: Ambulatory Notes: Patient is a 19-year-old female who presents to the emergency department for chief complaint of right upper quadrant abdominal pain. She states that she has had her symptoms for the past few months, but she was and was told that she had to wait to have it taken care of. The past 3 days she has been been getting progressively worse. Patient states that she is having low back pain. Has complaints of nausea and vomiting. TRAVEL OUTSIDE OF THE [place] IN LAST 30 DAYS: No - Related Data Allergies/Adverse Reactions: sumatriptan [From Imitrex] Adverse Reaction (Verified 12/08/19 17:13) Past Medical History - General Information source: Patient - Social History Smoking Status: Never Smoker Chew tobacco use (# tins/day): No Frequency of alcohol use: None Drug Abuse: None Family History: Reviewed & Not Pertinent Patient has suicidal ideation: No Patient has homicidal ideation: No Pulmonary Medical History: Reports: Hx Asthma Neurological Medical History: Reports: Hx Migraine Renal/ Medical History: Denies: Hx Peritoneal Dialysis Psychiatric Medical History: Reports: Hx Depression Past Surgical History: Reports: Hx Appendectomy Review of Systems - Review of Systems Notes: REVIEW OF SYSTEMS: CONSTITUTIONAL : Denies recent illness. Denies recent unintentional weight loss. Denies fever, chills, or sweats. EENT: Denies eye, ear, throat, or mouth pain, discharge, or symptoms. Denies nasal or sinus congestion. CARDIOVASCULAR: Denies chest pain. RESPIRATORY: Denies shortness of breath, cough, congestion, difficulty breathing, or wheezing. GASTROINTESTINAL: See HPI. GENITOURINARY: Denies difficulty urinating, burning, blood in urine, urgency or frequency. MUSCULOSKELETAL: Denies neck and back pain. Denies joint pain or swelling. SKIN: Denies rash, itchiness, or lesions HEMATOLOGIC : Denies easy bruising or bleeding. LYMPHATIC: Denies swollen, painful, enlarged glands. NEUROLOGICAL: Denies no numbness or tingling denies weakness. Denies headache. Denies altered mental status. Denies alteration in speech. PSYCHIATRIC: Denies stress, anxiety, alteration in sleep patterns, or depression. All other systems reviewed and negative. Physical Exam - Vital signs Vitals: Temp Pulse Resp BP Pulse Ox 98 F 78 20 99/53 L 99 12/08/19 16:23 12/08/19 16:23 12/08/19 16:23 12/08/19 16:23 12/08/19 16:23 - Notes Notes: PHYSICAL EXAMINATION: GENERAL: Appears well, healthy, well-nourished, no acute distress. HEAD: Normocephalic, atraumatic. EYES: PERRL, conjunctiva normal, all extraocular movements intact, sclera nonicteric ENT: Moist mucous membranes. NECK: Supple, no noticeable swelling, redness, rash. Normal range of motion. LUNGS: Equal breath sounds bilaterally and clear to auscultation. No wheezes rales or rhonchi. CARDIOVASCULAR: S1-S2, regular rate, regular rhythm. Radial pulses 2+, normal. ABDOMEN: Normoactive bowel sounds. Soft, tender right upper quadrant, no guarding, no rebound tenderness, and no masses palpated. EXTREMITIES: Normal strength and range of motion, no pitting or edema. No cyanosis. NEUROLOGICAL: Moves all extremities upon command. Strength 5/5 in all extremities. PSYCH: Normal mood, normal affect. SKIN: Warm, dry. No rash, lesions, ulcerations noted. Normal skin turgor. Course - Re-evaluation Re-evalutation: 12/09/19 01:21 Hematology shows a leukocytosis of 13,500. She has a shift to the left. Chemistries are unremarkable, other than a glucose of 70, which the patient was fed. Patient has a urinary tract infection. She will be started on Keflex. Urine will be sent for culture. Patient states that she feels better after receiving pain medication, antibiotics, and more IV fluids. Patient will follow-up with surgery outpatient. She is in agreement with this plan. Follow- up precautions were given. Verbal discharge instructions were given to the patient. They verbalized understanding. They are stable for discharge. - Vital Signs Vital signs: Temp Pulse Resp BP Pulse Ox 97.8 F 62 18 98/52 L 99 12/09/19 01:01 12/09/19 01:01 12/09/19 01:12/09/19 01:12/09/19 01:01 - Laboratory Result Diagrams: 12/08/19 17:30 12/08/19 17:30 Laboratory results interpreted by me: 12/08/19 12/08/19 12/08/19 17:30 17:30 17:30 WBC 13.5 H RDW 14.6 H Lymph % (Auto) 10.7 L Absolute Neuts (auto) 11.3 H Seg Neutrophils % 83.5 H Chloride 108 H Glucose 70 L Urine Protein >=500 H Urine Glucose (UA) 50 H Urine Blood LARGE H Ur Leukocyte Esterase SMALL H Discharge - Discharge Clinical Impression: Right upper quadrant abdominal pain Urinary tract infection Qualifiers: Urinary tract infection type: acute pyelonephritis Qualified Code(s): N10 - Acute pyelonephritis Condition: Stable Disposition: HOME, SELF-CARE Instructions: Urinary Tract Infection ([facility]) Additional Instructions: You were seen today in the emergency department for right upper quadrant abdo bebo pain and flank pain. ER with her urinary tract infection. You are being started on antibiotics. Please follow-up with your primary care provider. You also have gallbladder disease. Please follow-up with a surgeon in regards to this visit. Stick to a low-fat diet. Prescriptions: Cephalexin [Keflex] 500 mg PO BID #14 capsule Referrals: LENIN JARVIS MD [ACTIVE STAFF] - Follow up in 3-5 days
[2019-12-08] MEDS ORDERED: NORMAL SALINE 1000 ML 1,000 ML IV ONE (23:12)
[2019-12-08] MEDS ORDERED: METOCLOPRAMIDE HCL INJ/PF 10 MG/2 ML SDV IV ONE (23:12)
[2019-12-08] MEDS ORDERED: HYDROMORPHONE HCL INJ/PF 2 MG/ML AMPULE IV ONE (23:13)
[2019-12-08] MEDS ORDERED: CEFTRIAXONE 1 GM/D5W RTU 1 GM/50 ML RTUPB IV ONE (23:59)
[2019-12-09 01:04] VITALS: BP 98/52
== END 2019-12-09 01:30 | disposition home or self-care (01) ==
LOC: ER 16:17
DX: N10 Acute pyelonephritis (principal); R10.11 Right upper quadrant pain
CPT/HCPCS: 99284; 96375; 96365; 36415; 83690; 85025; 81025; 80053; 81001; 76705; J2765; J2270; J1170; J2405; J7030; J0696

== ENCOUNTER 2020-01-13 16:37 | Observation (INO) | payer OTHER ==
[2020-01-13] MEDS ORDERED: ONDANSETRON 4 MG TAB.RAPDIS PO ONE (17:13)
[2020-01-13] MEDS ORDERED: KETOROLAC TROMETHAMINE 60 MG/2 ML SDV IM ONE (17:13)
--- NOTE | 2020-01-13 17:17 | ER Document Report ---
HPI - HPI Time Seen by Provider: 01/13/20 17:07 Pain Level: 0 Context: Patient is a 19-year-old female who presents to the emergency department with a chief complaint of a fever. Patient states that earlier today her temperature was 101. Patient states that she also has a sore throat. Patient took Tylenol earlier today. Past medical history includes asthma. Patient has an albuterol inhaler and has been using it. - CONSTITUTIONAL Constitutional: REPORTS: Fever, Chills - EENT EENT: REPORTS: Sore Throat - REPRODUCTIVE Reproductive: DENIES: : Past Medical History - Social History Smoking Status: Never Smoker Chew tobacco use (# tins/day): No Frequency of alcohol use: None Drug Abuse: None Family History: Reviewed & Not Pertinent Patient has suicidal ideation: No Patient has homicidal ideation: No Pulmonary Medical History: Reports: Hx Asthma Neurological Medical History: Reports: Hx Migraine Renal/ Medical History: Denies: Hx Peritoneal Dialysis Psychiatric Medical History: Reports: Hx Depression Past Surgical History: Reports: Hx Appendectomy Vertical Provider Document - CONSTITUTIONAL Agree With Documented VS: Yes Exam Limitations: No Limitations General Appearance: No Apparent Distress - INFECTION CONTROL TRAVEL OUTSIDE OF THE [place] IN LAST 30 DAYS: No - HEENT HEENT: Atraumatic, Normocephalic, PERRLA, Pharyngeal Exudate, Pharyngeal Tenderness, Pharyngeal Erythema. negative: Tympanic Membrane Red, Tympanic Membrane Bulging - NECK Neck: Normal Inspection - RESPIRATORY Respiratory: Breath Sounds Normal, No Respiratory Distress - CARDIOVASCULAR Cardiovascular: Regular Rate, Regular Rhythm Pulses: Normal: Radial - GI/ABDOMEN Gastrointestinal: Abdomen Soft, Abdomen Non-Tender - MUSCULOSKELETAL/EXTREMETIES Musculoskeletal/Extremeties: FROM - NEURO Level of Consciousness: Awake, Alert, Appropriate Motor/Sensory: No Motor Deficit, No Sensory Deficit - DERM Integumentary: Warm, Dry, No Rash Course - Re-evaluation Re-evalutation: 01/13/20 18:37 Presentation is most consistent with a viral upper respiratory infection. Patient is overall well appearance, vitals within normal limits, well-hydrated. Patient denies any headache, neck pain, and has no evidence of meningismus on examination. Lungs are clear bilaterally. No evidence of respiratory distress. Based on clinical exam and history, I do not suspect an acute pneumonia, meningitis, strep pharyngitis, or an acute encephalitis. Influenza, strep, and chest x-ray are all normal. Will discharge patient with return precautions and followup recommendations. They are in agreement this plan have verbalized understanding return precautions. Discharge - Discharge Clinical Impression: Upper respiratory infection, viral Nausea and vomiting Qualifiers: Vomiting type: unspecified Vomiting Intractability: unspecified Qualified Code(s): R11.2 - Nausea with vomiting, unspecified Condition: Stable Disposition: HOME, SELF-CARE Prescriptions: Cetirizine HCl [All Day Allergy] 10 mg PO DAILY #30 tablet Fluticasone Propionate [Flonase Nasal [place] 50 Mcg/[place] 16 gm] 2 sprays NASL DAILY #1 inhaler Ondansetron [Zofran Odt 4 mg Tablet] 1 - 2 tab PO Q4H PRN #15 tab.rapdis PRN Reason: For Nausea/Vomiting
--- NOTE | 2020-01-13 17:42 | RADIOLOGY REPORT (SQ) ---
EXAM DESCRIPTION: CHEST 2 VIEWS COMPLETED DATE/TIME: 01/13/2020 5:29 pm REASON FOR STUDY: fever;asthma COMPARISON: None. EXAM PARAMETERS: NUMBER OF VIEWS: two views TECHNIQUE: Digital Frontal and Lateral radiographic views of the chest acquired. RADIATION DOSE: NA LIMITATIONS: none FINDINGS: LUNGS AND PLEURA: No opacities, masses or pneumothorax. No pleural effusion. MEDIASTINUM AND HILAR STRUCTURES: No masses or contour abnormalities. HEART AND VASCULAR STRUCTURES: Heart normal size. No evidence for failure. BONES: No acute findings. HARDWARE: None in the chest. OTHER: No other significant finding. IMPRESSION: NO ACUTE RADIOGRAPHIC FINDING IN THE CHEST. TECHNICAL DOCUMENTATION: JOB ID: [id number] 2010 [employer]- All Rights Reserved Reading location - IP/workstation name: [email or web address]
[2020-01-13 18:20] LABS: A TYPE INFLUENZA AG NEGATIVE (NEGATIVE); B INFLUENZA AG NEGATIVE (NEGATIVE)
[2020-01-13] MEDS ORDERED: NORMAL SALINE 1000 ML 1,000 ML IV ONE (19:14)
--- NOTE | 2020-01-13 19:15 | ER Document Report ---
ED General - General Chief Complaint: Flu Symptoms Stated Complaint: FEVER Time Seen by Provider: 01/13/20 17:07 Notes: Patient is a 19-year-old female who presents emergency department with a chief complaint of a fever and flulike symptoms. Her fever started today. She also has complaints of right upper quadrant abdominal pain. She was seen on December 08 by myself with similar symptoms. She states that she went to the [facility] shortly after the visit on the and was told that she needed to have her gallbladder taken out. Patient states that she continues pain despite staying away from fatty foods. She has had also had vomiting for the past 3 days and is unable to keep any food down. TRAVEL OUTSIDE OF THE [place] IN LAST 30 DAYS: No - Related Data Allergies/Adverse Reactions: sumatriptan [From Imitrex] Adverse Reaction (Verified 01/13/20 17:06) Past Medical History - General Information source: Patient - Social History Smoking Status: Never Smoker Chew tobacco use (# tins/day): No Frequency of alcohol use: None Drug Abuse: None Family History: Reviewed & Not Pertinent Patient has suicidal ideation: No Patient has homicidal ideation: No Pulmonary Medical History: Reports: Hx Asthma Neurological Medical History: Reports: Hx Migraine Renal/ Medical History: Denies: Hx Peritoneal Dialysis Psychiatric Medical History: Reports: Hx Depression Past Surgical History: Reports: Hx Appendectomy Review of Systems - Review of Systems Notes: REVIEW OF SYSTEMS: CONSTITUTIONAL : Denies recent illness. Denies recent unintentional weight loss. Denies fever, chills, or sweats. EENT: Denies eye, ear, throat, or mouth pain, discharge, or symptoms. Denies nasal or sinus congestion. CARDIOVASCULAR: Denies chest pain. RESPIRATORY: Denies shortness of breath, cough, congestion, difficulty breat leonides, or wheezing. GASTROINTESTINAL: See HPI. GENITOURINARY: Denies difficulty urinating, burning, blood in urine, urgency or frequency. MUSCULOSKELETAL: Denies neck and back pain. Denies joint pain or swelling. SKIN: Denies rash, itchiness, or lesions HEMATOLOGIC : Denies easy bruising or bleeding. LYMPHATIC: Denies swollen, painful, enlarged glands. NEUROLOGICAL: Denies no numbness or tingling denies weakness. Denies headache. Denies altered mental status. Denies alteration in speech. PSYCHIATRIC: Denies stress, anxiety, alteration in sleep patterns, or depression. All other systems reviewed and negative. Physical Exam - Vital signs Vitals: Temp Pulse BP Pulse Ox 97.9 F 101 H 115/65 100 01/13/20 16:51 01/13/20 16:51 01/13/20 16:51 01/13/20 16:51 - Notes Notes: PHYSICAL EXAMINATION: GENERAL: Appears well, healthy, well-nourished, no acute distress. HEAD: Normocephalic, atraumatic. EYES: PERRL, conjunctiva normal, all extraocular movements intact, sclera nonicteric ENT: Moist mucous membranes. Clear rhinorrhea noted NECK: Supple, no noticeable swelling, redness, rash. Normal range of motion. LUNGS: Equal breath sounds bilaterally and clear to auscultation. No wheezes rales or rhonchi. CARDIOVASCULAR: S1-S2, regular rate, regular rhythm. Radial pulses 2+, normal. ABDOMEN: Normoactive bowel sounds. Soft, tender right upper quadrant with moderate guarding, no rebound tenderness, and no masses palpated. EXTREMITIES: Normal strength and range of motion, no pitting or edema. No cyanosis. NEUROLOGICAL: Moves all extremities upon command. Strength 5/5 in all extremities. PSYCH: Normal mood, normal affect. SKIN: Warm, dry. No rash, lesions, ulcerations noted. Normal skin turgor. Course - Re-evaluation Re-evalutation: 01/13/20 21:16 Patient has a mild leukocytosis of 10,800. Chemistries are unremarkable. Influenza and strep test are negative. Chest x-ray is negative for any acute findings. The patient has gallbladder wall thickness about 2 mm, per the radiologist. There are no stones noted. Although Alvarado sign is negative on on my exam, the patient does have a positive Alvarado's sign. Discussed these findings with Dr. Ruelas. He will evaluate the patient. 01/13/20 21:30 Dr. Ruelas has evaluated the patient and the patient will be admitted to the surgical floor. - Vital Signs Vital signs: Temp Pulse Resp BP Pulse Ox 97.8 F 77 18 104/55 L 100 01/13/20 20:29 01/13/20 20:29 01/13/20 20:29 01/13/20 20:29 01/13/20 20:29 - Laboratory Result Diagrams: 01/13/20 19:31 01/13/20 19:31 Laboratory results interpreted by me: 01/13/20 01/13/20 19:31 21:08 WBC 10.8 H RDW 14.2 H Urine Protein 30 H Urine Ketones 20 H Discharge - Discharge Clinical Impression: Upper respiratory infection, viral, Gallbladder pain, Cholecystitis Nausea and vomiting Qualifiers: Vomiting type: unspecified Vomiting Intractability: unspecified Qualified Code(s): R11.2 - Nausea with vomiting, unspecified Condition: Stable Disposition: ADMITTED INPATIENT Admitting Provider: Surgicalist Unit Admitted: Surgical Floor
[2020-01-13 19:47] LABS: ABSOLUTE LYMPHOCYTES (AUTO) 1.7 10^3/uL (0.5-4.7); ABSOLUTE MONOCYTES (AUTO) 1.3 10^3/uL (0.1-1.4); ABSOLUTE NEUT (AUTO) 7.8 10^3/uL (1.7-8.2); BASOPHILS % (AUTO) 0.2 % (0-2); HEMATOCRIT 37.7 % (36.0-47.0); HEMOGLOBIN 12.7 g/dL (12.0-15.5); LYMPHOCYTES % (AUTO) 15.4 % (13-45); MEAN CORPUSCULAR HEMOGLOBIN 28.5 pg (27.0-33.4); MEAN CORPUSCULAR HGB CONC 33.6 g/dL (32.0-36.0); MEAN CORPUSCULAR VOLUME 85 fl (80-97); MONOCYTES % (AUTO) 12.1 % (3-13); PLATELET COUNT 172 10^3/uL (150-450); RED BLOOD COUNT 4.45 10^6/uL (3.72-5.28); RED CELL DISTRIBUTION WIDTH 14.2 % (11.5-14.0); SEGMENTED NEUTROPHILS % (AUTO) 72.3 % (42-78); TOTAL CELLS COUNTED % (AUTO) 100 %; WHITE BLOOD COUNT 10.8 10^3/uL (4.0-10.5)
[2020-01-13 20:05] LABS: ALBUMIN 4.5 g/dL (3.5-5.0); ALKALINE PHOSPHATASE 68 U/L (38-126); ANION GAP 13 (5-19); ASPARTATE AMINO TRANSFERASE 34 U/L (14-36); BILIRUBIN,DIRECT 0.3 mg/dL (0.0-0.4); BILIRUBIN,TOTAL 0.5 mg/dL (0.2-1.3); BLOOD UREA NITROGEN 16 mg/dL (7-20); CALCIUM 8.9 mg/dL (8.4-10.2); CARBON DIOXIDE 23 mmol/L (22-30); CHLORIDE 103 mmol/L (98-107); GLUCOSE 90 mg/dL (75-110); POTASSIUM 3.6 mmol/L (3.6-5.0)
--- NOTE | 2020-01-13 20:46 | RADIOLOGY REPORT (SQ) ---
EXAM DESCRIPTION: US ABDOMEN LIMITED COMPLETED DATE/TME: 01/13/2020 18:56 CLINICAL HISTORY: 19 years, Female, RUQ; vomiting COMPARISON: Prior study from 12/08/2019 TECHNIQUE: Axial 2-D grayscale images of the abdomen were acquired. Doppler was utilized. LIMITATIONS: None. FINDINGS: Visualized portions of the pancreatic parenchyma appear normal. Abdominal aortic measurements are as follows: Proximal: 1.4 cm Mid: 1.0 cm Distal: 1.0 cm The liver is normal in echogenicity. It measures 13.4 cm in length. Antegrade flow is documented within the main portal vein. Gallbladder wall thickness measures 2 mm. No gallstones. Common bile duct diameter measures 2 mm. Sonographic Alvarado sign was negative. Right kidney measures 10.8 x 3.1 x 4.4 cm in size. No hydronephrosis. IMPRESSION: No acute sonographic abnormality within the right upper quadrant. copyright 2010 [employer]- All Rights Reserved
[2020-01-13 21:21] LABS: APPEARANCE,URINE SLIGHTLY-CLOUDY; BILIRUBIN,URINE NEGATIVE (NEGATIVE); COLOR,URINE AMBER; GLUCOSE, URINE NEGATIVE (NEGATIVE); KETONES,URINE 20 mg/dL (NEGATIVE); LEUKOCYTE ESTERASE,URINE NEGATIVE (NEGATIVE); NITRITE,URINE NEGATIVE (NEGATIVE); PROTEIN,URINE 30 mg/dL (NEGATIVE); URINE SPECIFIC GRAVITY 1.033; UROBILINOGEN,URINE NEGATIVE mg/dL (<2.0)
--- NOTE | 2020-01-13 22:17 | PDOC H&P ---
History of Present Illness Admission Date/PCP: 01/13/20 21:55 Patient complains of: Right upper quadrant pains with nausea History of Present Illness: LOUIE RIZO is a 19 year old female who is about 5 months . During her she was noted to have sludge in the gallbladder according to the patient. Last December 08 patient was seen in the ED for right upper quadrant pain and had an ultrasound which did not show any stones in the gallbla dder. Patient was discharged and subsequently admitted to the [facility] and was told that she needs her gallbladder removed on semi-elective basis. For the past 2 to 3 days patient has been complaining of right upper quadrant pains and unable to tolerate any food. She would she is continues to have nausea and episodes of vomiting. She did have fever yesterday and today according to the patient though in the ED her temperature was normal. Patient claims she took Tylenol just prior to coming to ED. Her white count is noted to be 10.8. Ultrasound of the gallbladder was then done which showed gallbladder wall about 2 mm again no stones in the gallbladder noted. However patient is tender in the right upper quadrant and unable to eat. She she tries not to eat any fatty food because this gives her a lot of discomfort. Past Medical History Pulmonary Medical History: Reports: Asthma - Has Advair inhaler and Ventolin inhaler Neurological Medical History: Reports: Migraine Psychiatric Medical History: Reports: Depression Past Surgical History Past Surgical History: Reports: Appendectomy - Laparoscopic appendectomy about 3 and half years ago Social History Smoking Status: Never Smoker Electronic Cigarette use?: No Family History Family History: Reviewed & Not Pertinent Parental Family History Reviewed: Yes - Does not know any history from her biological father. Mother with no DM Children Family History Reviewed: No Sibling(s) Family History Reviewed.: No Medication/Allergy Home Medications: Albuterol Sulfate [Albuterol Sulfate Hfa] 2 inhaler PO PRN PRN 07/31/19 Cephalexin [Keflex] 500 mg PO BID #14 capsule 12/09/19 Cetirizine HCl [All Day Allergy] 10 mg PO DAILY #30 tablet 01/13/20 Fluticasone Propionate [Flonase Nasal [place] 50 Mcg/[place] 16 gm] 2 sprays NASL DAILY #1 inhaler 01/13/20 Ondansetron [Zofran Odt 4 mg Tablet] 1 - 2 tab PO Q4H PRN #15 tab.rapdis 01/13/20 Allergies/Adverse Reactions: sumatriptan [From Imitrex] Adverse Reaction (Verified 01/13/20 17:06) Review of Systems Constitutional: PRESENT: as per HPI, fever(s) Cardiovascular: PRESENT: other - No chest pains nor cough Gastrointestinal: PRESENT: abdominal pain, nausea, vomiting Physical Exam Vital Signs: Temp Pulse Resp BP Pulse Ox 97.8 F 77 18 104/55 L 100 01/13/20 20:29 01/13/20 20:29 01/13/20 20:29 01/13/20 20:29 01/13/20 20:29 Intake & Output 01/12/20 01/13/20 01/14/20 06:59 06:59 06:59 Intake Total 1000 Balance 1000 Weight 55.5 kg General appearance: PRESENT: mild distress Head exam: PRESENT: atraumatic Eye exam: PRESENT: conjunctiva pink Mouth exam: PRESENT: moist Neck exam: PRESENT: full ROM Respiratory exam: PRESENT: clear to auscultation [place] Cardiovascular exam: PRESENT: RRR Pulses: PRESENT: normal radial pulses Vascular exam: PRESENT: normal capillary refill GI/Abdominal exam: PRESENT: soft, tenderness - Right upper quadrant Rectal exam: PRESENT: deferred Extremities exam: PRESENT: full ROM Musculoskeletal exam: PRESENT: full ROM Neurological exam: PRESENT: alert, oriented to person, oriented to place, oriented to time, oriented to situation Psychiatric exam: PRESENT: appropriate affect Skin exam: PRESENT: normal color, warm Results Laboratory Results: 01/13/20 19:31 01/13/20 19:31 01/13/20 01/13/20 01/13/20 19:31 19:31 19:31 WBC 10.8 H RBC 4.45 Hgb 12.7 Hct 37.7 MCV 85 MCH 28.5 MCHC 33.6 RDW 14.2 H Plt Count 172 Seg Neutrophils % 72.3 Sodium 138.7 Potassium 3.6 Chloride 103 Carbon Dioxide 23 Anion Gap 13 BUN 16 Creatinine 0.63 Est GFR ( Amer) > 60 Glucose 90 Calcium 8.9 Total Bilirubin 0.5 AST 34 Alkaline Phosphatase 68 Total Protein 8.0 Albumin 4.5 Lipase 52.0 Urine Color Urine Appearance Urine pH Ur Specific [place] Urine Protein Urine Glucose (UA) Urine Ketones Urine Blood Urine Nitrite Ur Leukocyte Esterase Urine WBC (Auto) Urine RBC (Auto) 01/13/20 21:08 WBC RBC Hgb Hct MCV MCH MCHC RDW Plt Count Seg Neutrophils % Sodium Potassium Chloride Carbon Dioxide Anion Gap BUN Creatinine Est GFR ( Amer) Glucose Calcium Total Bilirubin AST Alkaline Phosphatase Total Protein Albumin Lipase Urine Color ERIN Urine Appearance SLIGHTLY-CLOUDY Urine pH 5.0 Ur Specific [place] 1.033 Urine Protein 30 H Urine Glucose (UA) NEGATIVE Urine Ketones 20 H Urine Blood NEGATIVE Urine Nitrite NEGATIVE Ur Leukocyte Esterase NEGATIVE Urine WBC (Auto) 7 Urine RBC (Auto) 1 Impressions: Chest X-Ray 01/13/20 17:13 IMPRESSION: NO ACUTE RADIOGRAPHIC FINDING IN THE CHEST. Abdomen Ultrasound 01/13/20 18:56 IMPRESSION: No acute sonographic abnormality within the right upper quadrant. copyright 2010 [employer] All Rights Reserved Assessment & Plan - Diagnosis (1) Gallbladder pain Is this a current diagnosis for this admission?: Yes (2) Nausea and vomiting Qualifiers: Vomiting type: unspecified Vomiting Intractability: unspecified Qualified Code(s): R11.2 - Nausea with vomiting, unspecified Is this a current diagnosis for this admission?: Yes - Time Time Spent: 30 to 50 Minutes - Inpatient Certification Medical Necessity: Need For IV Fluids, Need for IV Antibiotics, Need for Surgery - Plan Summary Plan Summary: 19-year-old female who 5 months was told to have sludge in her gallbladder during her . She she has fatty food intolerance and off and on right upper quadrant pains. For the last 2 days she has been having pains in the right upper quadrant pain and inability to eat. She has been nauseated. She claims she has been having fever since yesterday and today and took some Tylenol prior to coming to the ED. She had an ultrasound of the gallbladder which showed gallbladder wall about 2 mm but no stones. She is tender in the right upper quadrant. He white count is elevated to 10.8 but her LFTs are normal. Impression: Acute cholecystitis Plans: Keep n.p.o. and start IV antibiotics. For laparoscopic cholecystectomy tomorrow by Dr. Garcia
[2020-01-14] MEDS ORDERED: DEXTROSE 5%-LACTATED RINGERS 1,000 ML IV PRN (00:01)
[2020-01-14] MEDS ORDERED: ONDANSETRON HCL INJ/PF 4 MG/2 ML SDV IV PRN (00:02)
[2020-01-14] MEDS: KETOROLAC TROMETHAMINE INJ/PF 30 MG/1 ML SDV IV PRN ×2 (00:14→06:47)
[2020-01-14] MEDS ORDERED: CEFAZOLIN 1 GM/D5W RTU 1 GM/50 ML RTUPB IV ONE (00:15)
[2020-01-14] MEDS ORDERED: ALBUTEROL SULFATE HFA (90 MCG/PUFF) 8 GM MDI IH PRN (00:23)
[2020-01-14] MEDS ORDERED: ALBUTEROL SULFATE HFA (90 MCG/PUFF) 8 GM MDI IH ONE (00:44)
[2020-01-14] MEDS ORDERED: CEFAZOLIN 1 GM/D5W RTU 1 GM/50 ML RTUPB IV SCH (06:00)
--- NOTE | 2020-01-14 09:31 | PDOC PROGRESS REPORT ---
Subjective Progress Note for:: 01/14/20 Reason For Visit: ACUTE CHOLECYSTITIS Patient still having some right upper quadrant pain. Has been n.p.o. since midnight. Physical Exam Vital Signs: Temp Pulse Resp BP Pulse Ox 101.0 F H 104 H 20 92/38 L 99 01/14/20 08:00 01/14/20 08:00 01/14/20 08:00 01/14/20 08:00 01/14/20 08:00 Intake & Output 01/13/20 01/14/20 01/15/20 06:59 06:59 06:59 Intake Total 1050 50 Output Total 100 Balance 950 50 Weight 56.1 kg General appearance: PRESENT: no acute distress GI/Abdominal exam: PRESENT: other - Abdomen soft, tender in the right upper quadrant with minimal guarding. Results Laboratory Results: 01/13/20 19:31 01/13/20 19:31 01/13/20 01/13/20 01/13/20 19:31 19:31 19:31 WBC 10.8 H RBC 4.45 Hgb 12.7 Hct 37.7 MCV 85 MCH 28.5 MCHC 33.6 RDW 14.2 H Plt Count 172 Seg Neutrophils % 72.3 Sodium 138.7 Potassium 3.6 Chloride 103 Carbon Dioxide 23 Anion Gap 13 BUN 16 Creatinine 0.63 Est GFR ( Amer) > 60 Glucose 90 Calcium 8.9 Total Bilirubin 0.5 AST 34 Alkaline Phosphatase 68 Total Protein 8.0 Albumin 4.5 Lipase 52.0 Urine Color Urine Appearance Urine pH Ur Specific [place] Urine Protein Urine Glucose (UA) Urine Ketones Urine Blood Urine Nitrite Ur Leukocyte Esterase Urine WBC (Auto) Urine RBC (Auto) 01/13/20 21:08 WBC RBC Hgb Hct MCV MCH MCHC RDW Plt Count Seg Neutrophils % Sodium Potassium Chloride Carbon Dioxide Anion Gap BUN Creatinine Est GFR ( Amer) Glucose Calcium Total Bilirubin AST Alkaline Phosphatase Total Protein Albumin Lipase Urine Color ERIN Urine Appearance SLIGHTLY-CLOUDY Urine pH 5.0 Ur Specific [place] 1.033 Urine Protein 30 H Urine Glucose (UA) NEGATIVE Urine Ketones 20 H Urine Blood NEGATIVE Urine Nitrite NEGATIVE Ur Leukocyte Esterase NEGATIVE Urine WBC (Auto) 7 Urine RBC (Auto) 1 Impressions: Chest X-Ray 01/13/20 17:13 IMPRESSION: NO ACUTE RADIOGRAPHIC FINDING IN THE CHEST. Abdomen Ultrasound 01/13/20 18:56 IMPRESSION: No acute sonographic abnormality within the right upper quadrant. copyright 2010 [employer]- All Rights Reserved Assessment & Plan - Diagnosis (1) Cholecystitis Is this a current diagnosis for this admission?: Yes Plan: Impression: Symptomatic cholelithiasis with cholecystitis and otherwise healthy white female Recommendations: 1. Proceed with laparoscopic, possible open cholecystectomy. The Mechanics of the operation, as well as an explanation of risk benefits alternatives have been reviewed with the patient. She expresses her understanding and agrees to proceed. - Time Time Spent: 30 to 50 Minutes Medications reviewed and adjusted accordingly: Yes Anticipated discharge: Home
[2020-01-14] MEDS ORDERED: DEXMEDETOMIDINE INJ 80 MCG/20 ML VIAL IV ONE (09:59)
[2020-01-14] MEDS ORDERED: PROPOFOL INJ 200 MG/20 ML VIAL IV ONE (09:59)
[2020-01-14] MEDS ORDERED: FENTANYL CITRATE INJ/PF 100 MCG/2 ML AMPUL ONE (09:59)
[2020-01-14] MEDS ORDERED: DEXAMETHASONE SOD PHOSPHATE INJ 4 MG/1 ML VIAL ONE (09:59)
[2020-01-14] MEDS ORDERED: ONDANSETRON HCL INJ/PF 4 MG/2 ML SDV ONE (09:59)
[2020-01-14] MEDS ORDERED: LIDOCAINE 2% INJ-PF (20 MG/ML) 10 ML AMPUL ONE (09:59)
[2020-01-14] MEDS ORDERED: MIDAZOLAM 2 MG/2 ML INJ ONE (09:59)
[2020-01-14] MEDS ORDERED: FLUTICASONE/VILANTEROL 200-25 MCG/DOSE IH SCH (10:00)
[2020-01-14] MEDS ORDERED: BUPIVACAINE HCL 0.25 % INJ/PF (2.5 MG/1 ML) 30 ML VIAL ONE (10:15)
[2020-01-14] MEDS ORDERED: OXYCODONE-ACETAMINOPHEN 5-325 MG TABLET PO PRN ×2 (10:51)
[2020-01-14] MEDS ORDERED: PROMETHAZINE HCL INJ 25 MG/1 ML VIAL IV PRN ×2 (10:51)
[2020-01-14] MEDS ORDERED: MORPHINE SULFATE 10 MG/ML INJ IV PRN (10:51)
[2020-01-14] MEDS ORDERED: MEPERIDINE HCL/PF INJ 25 MG/1 ML DISP.SYRIN IV PRN (10:51)
[2020-01-14] MEDS ORDERED: FENTANYL CITRATE INJ/PF 100 MCG/2 ML AMPUL IV PRN ×3 (10:51)
[2020-01-14] MEDS ORDERED: DIPHENHYDRAMINE HCL 50 MG/ML VIAL IV PRN (10:51)
[2020-01-14] MEDS ORDERED: ACETAMINOPHEN WITH CODEINE #3 TABLET PO PRN (11:19)
--- NOTE | 2020-01-14 11:19 | Operative Report ---
Operative Report DATE OF SURGERY: 01/14/20 PREOPERATIVE DIAGNOSIS: Symptomatic cholelithiasis with cholecystitis POSTOPERATIVE DIAGNOSIS: Same OPERATION: Laparoscopic cholecystectomy SURGEON: MLEANY MONTAÑO ANESTHESIA: GA TISSUE REMOVED OR ALTERED: 1 gallbladder COMPLICATIONS: None ESTIMATED BLOOD LOSS: Scant INTRAOPERATIVE FINDINGS: See below PROCEDURE: After obtaining informed consent, the patient was taken to the operating room. General Anesthesia was induced; the arms were extended, and the abdomen was exposed, and prepped and draped in a sterile fashion. Instrumentation was set up for laparoscopic cholecystectomy. Surgical plan and surgical timeout were conducted. A vertical incision was made above the umbilicus, and a verres needle was inserted uneventfully into the peritoneal cavity. Pneumoperitoneum was established. The verres needle was removed and a 5 mm trocar was inserted and a 5 mm flexible laparoscope was inserted. Visualization of the peritoneal cavity confirmed safe uneventful entry. Under direct visualization 3 additional 5 mm ports were established, one in the subxiphoid position and second in the subcostal position. A grasper was placed on the fundus of the gallbladder and the gallbladder is elevated over the right surface of the liver; a second grasper was used to grasp the infundibulum of the gallbladder. Visualization of the hepato ileal area anatomy appeared normal. The neck of the gallbladder and junction with the cystic duct was dissected out. The diminutive, with a branch point just below the cystic duct. The deeper or posterior branch was clipped proximally, distally and divided. We now opened the triangle of Calot by dividing the peritoneal reflection on both the medial and lateral sides of the cystic duct infundibular junction. The critical view was obtained. Photos were taken. We now milked the cystic duct of any possible stones, clipped the cystic duct in conjunction with the anterior branch of the cystic artery proximally 2 times, once distally and divided the duct and small vessel with scissors. Photos were taken again. The gallbladder was now removed from the undersurface of the liver using hook cautery dissection. Graspers were repositioned and the gallbladder was removed uneventfully from the abdominal cavity through the super umbilical port site incision. There was some spillage of bile which was aspirated reasonably well from the omentum. The specimen was examined, then passed off to pathology for permanent analysis. We returned to the peritoneal cavity check for bleeding, and evidence of bile leak, and there was none. We Confirmed satisfactory placement of clips on cystic duct and cystic artery were secured . At this point we felt the operation was complete. The subcutaneous tissue was then anesthetized with quarter percent Marcaine Sponge and needle counts are correct. All ports removed under direct visualization pneumoperitoneum evacuated, and 5 mm port wounds closed 0 at the fascial level at the supraumbilical port site, and the skin with 3-0 Vicryl suture, benzoin and Steri-Strips. The patient was extubated, and taken to the recovery room in stable condition.
[2020-01-14] MEDS: FENTANYL CITRATE INJ/PF 100 MCG/2 ML AMPUL ONE ×2 (11:39→12:00)
[2020-01-14] MEDS ORDERED: PHENYLEPHRINE HCL INJ/PF 10 MG/1 ML SDV ONE (14:16)
[2020-01-14] MEDS ORDERED: NEOSTIGMINE METHYLSULFATE 10 MG/10 ML VIAL ONE (14:16)
[2020-01-14] MEDS ORDERED: GLYCOPYRROLATE 1 MG/5 ML VIAL ONE (14:16)
[2020-01-14] MEDS ORDERED: KETOROLAC TROMETHAMINE 60 MG/2 ML SDV ONE (14:16)
--- NOTE | 2020-01-14 19:54 | PDOC DISCHARGE SUMMARY ---
General - Admit/Disc Date/PCP Admission Date/Primary Care Provider: 01/13/20 21:55 Discharge Date: 01/14/20 - Discharge Diagnosis Final Diagnosis: Cholecystitis cholelithiasis - Assessment Summary: Patient 19-year-old white female with history of known cholelithiasis who presents emergency department complaining of abdominal pain nausea and right upper quadrant tenderness. She was admitted to the surgical service for definitive management. She was kept n.p.o. on IV fluids and the following day she underwent laparoscopic cholecystectomy. She tolerated the procedure well, started on a diet, had adequate pain control, voided and was discharged home later that day. She will follow-up with Dr. Garcia at [facility], 1 to 2 weeks; she will take Tylenol, and/or Motrin PRN pain. She May shower. - Additional Information Resuscitation Status: Full Code Discharge Activity: No Lifting Over 10 Pounds - Follow-up with [facility] in 1 to 2 weeks; call Tuesday morning for an appointment. Referrals: MELANY GARCIA MD [ACTIVE STAFF] - 01/25/20 11:00 am Home Medications: Albuterol Sulfate [Albuterol Sulfate Hfa] 2 inhaler PO Q4 PRN 07/31/19 Fluticasone/Salmeterol [Advair 250-50 Diskus 14 Dose/Diskus] 2 puff PO BID 01/13/20 Diphenhydramine HCl [Benadryl] 25 mg PO DAILY 01/14/20 Sertraline HCl [Zoloft 50 mg Tablet] 50 mg PO DAILY 01/14/20 History of Present Illiness History of Present Illness: LOUIE RIZO is a 19 year old female Physical Exam Vital Signs: Temp Pulse Resp BP Pulse Ox 98.6 F 82 16 104/62 98 01/14/20 16:33 01/14/20 16:33 01/14/20 16:33 01/14/20 16:33 01/14/20 16:33 Intake & Output 01/13/20 01/14/20 01/15/20 06:59 06:59 06:59 Intake Total 1050 1910 Output Total 100 5 Balance 950 1905 Weight 56.1 kg Results Laboratory Results: WBC 10.8 10^3/uL (4.0-10.5) H 01/13/20 19:31 RBC 4.45 10^6/uL (3.72-5.28) 01/13/20 19: Hgb 12.7 g/dL (12.0-15.5) 01/13/20 19: Hct 37.7 % (36.0-47.0) 01/13/20 19: MCV 85 fl (80-97) 01/13/20: MCH 28.5 pg (27.0-33.4) 01/13/20: MCHC 33.6 g/dL (32.0-36.0) 01/13/20 19: RDW 14.2 % (11.5-14.0) H 01/13/20: Plt Count 172 10^3/uL (150-450) 01/13/20: Lymph % (Auto) 15.4 % (13-45) 01/13/20: [place] % (Auto) 12.1 % (3-13) 01/13/20: Eos % (Auto) 0.0 % (0-6) 01/13/20: Baso % (Auto) 0.2 % (0-2) 01/13/20: Absolute Neuts (auto) 7.8 10^3/uL (1.7-8.2) 01/13/20: Absolute Lymphs (auto) 1.7 10^3/uL (0.5-4.7) 01/13/20: Absolute Monos (auto) 1.3 10^3/uL (0.1-1.4) 01/13/20: Absolute Eos (auto) 0.0 10^3/uL (0.0-0.6) 01/13/20: Absolute Basos (auto) 0.0 10^3/uL (0.0-0.2) 01/13/20: Seg Neutrophils % 72.3 % (42-78) 01/13/20: Sodium 138.7 mmol/L (137-145) 01/13/20: Potassium 3.6 mmol/L (3.6-5.0) 01/13/20: Chloride 103 mmol/L (98-107) 01/13/20 19:31 Carbon Dioxide 23 mmol/L (22-30) 01/13/20 19:31 Anion Gap 13 (5-19) 01/13/20 19:31 BUN 16 mg/dL (7-20) 01/13/20 19:31 Creatinine 0.63 mg/dL (0.52-1.25) 01/13/20 19:31 Est GFR ( Amer) > 60 (>60) 01/13/20 19:31 Est GFR (MDRD) Non-Af > 60 (>60) 01/13/20 19:31 Glucose 90 mg/dL (75-110) 01/13/20 19:31 Calcium 8.9 mg/dL (8.4-10.2) 01/13/20 19:31 Total Bilirubin 0.5 mg/dL (0.2-1.3) 01/13/20 19:31 Direct Bilirubin 0.3 mg/dL (0.0-0.4) 01/13/20 19:31 Neonat Total Bilirubin Not Reportable 01/13/20 19:31 Neonat Direct Bilirubin Not Reportable 01/13/20 19:31 Neonat Indirect Bili Not Reportable 01/13/20 19:31 AST 34 U/L (14-36) 01/13/20 19:31 ALT 29 U/L (<35) 01/13/20 19:31 Alkaline Phosphatase 68 U/L (38-126) 01/13/20 19:31 Total Protein 8.0 g/dL (6.3-8.2) 01/13/20 19:31 Albumin 4.5 g/dL (3.5-5.0) 01/13/20 19:31 Lipase 52.0 U/L (23-300) 01/13/20 19:31 Urine Color ERIN 01/13/20 21:08 Urine Appearance SLIGHTLY-CLOUDY 01/13/20 21:08 Urine pH 5.0 (5.0-9.0) 01/13/20 21:08 Ur Specific [place] 1.033 01/13/20 21:08 Urine Protein 30 mg/dL (NEGATIVE) H 01/13/20 21:08 Urine Glucose (UA) NEGATIVE mg/dL (NEGATIVE) 01/13/20 21:08 Urine Ketones 20 mg/dL (NEGATIVE) H 01/13/20 21:08 Urine Blood NEGATIVE (NEGATIVE) 01/13/20 21:08 Urine Nitrite NEGATIVE (NEGATIVE) 01/13/20 21:08 Urine Bilirubin NEGATIVE (NEGATIVE) 01/13/20 21:08 Urine Urobilinogen NEGATIVE mg/dL (<2.0) 01/13/20 21:08 Ur Leukocyte Esterase NEGATIVE (NEGATIVE) 01/13/20 21:08 Urine WBC (Auto) 7 /HPF 01/13/20 21:08 Urine RBC (Auto) 1 /HPF 01/13/20 21:08 Squamous Epi Cells Auto 8 /HPF 01/13/20 21:08 Urine Mucus (Auto) MANY /LPF 01/13/20 21:08 Urine Ascorbic Acid NEGATIVE (NEGATIVE) 01/13/20 21:08 Urine HCG, Qual NEGATIVE (NEGATIVE) 01/13/20 21:08 Influenza A (Rapid) NEGATIVE (NEGATIVE) 01/13/20 17:41 Influenza B (Rapid) NEGATIVE (NEGATIVE) 01/13/20 17:41 Group A Strep Rapid NEGATIVE (NEGATIVE) 01/13/20 17:10 Impressions: Chest X-Ray 01/13/20 17:13 IMPRESSION: NO ACUTE RADIOGRAPHIC FINDING IN THE CHEST. Abdomen Ultrasound 01/13/20 18:56 IMPRESSION: No acute sonographic abnormality within the right upper quadrant. copyright 2010 [facility] [employer]- All Rights Reserved
[2020-01-14 20:26] VITALS: BP 92/38
== END 2020-01-14 21:39 | disposition home or self-care (01) ==
LOC: ER 16:37 → EH 21:55 → INTOOBSV 21:55 → 5 22:36
PROVIDERS: ATTEND Surgery
DX: K81.1 Chronic cholecystitis (principal); J45.909 Unspecified asthma, uncomplicated; F32.9 Major depressive disorder, single episode, unspecified; Z79.899 Other long term (current) drug therapy; J06.9 Acute upper respiratory infection, unspecified; Z79.51 Long term (current) use of inhaled steroids; Z90.49 Acquired absence of other specified parts of digestive tract
CPT/HCPCS: 47562; 99285; 96372; 36415; 87070; 87880; 83690; 85025; 81025; 80053; 81001; 87804; 88304 ×2; 71046; 76705; 00790; G0378; J2250; J0690; J1100; J1885 ×3; S0119; J3010; J2710; J2370; J2405; J7121; J7030; J2704; J3490 ×5; 790

== ENCOUNTER 2020-04-21 18:17 | Emergency (ER) | payer OTHER ==
[2020-04-21] MEDS ORDERED: CEFTRIAXONE INJ 250 MG VIAL IM ONE ×2 (19:35→23:09)
[2020-04-21] MEDS ORDERED: LIDOCAINE 1% INJ-PF (10 MG/ML) 30 ML SDV INJ ONE ×2 (19:35→23:10)
[2020-04-21] MEDS ORDERED: AZITHROMYCIN 250 MG TABLET PO ONE ×2 (19:35→23:11)
[2020-04-21] MEDS ORDERED: PROMETHAZINE HCL 25 MG TABLET PO ONE ×2 (19:35→23:09)
[2020-04-21] MEDS ORDERED: LEVONORGESTREL 1.5 MG TABLET (1 TAB/ER-USE) PO ONE ×2 (19:37→23:11)
[2020-04-21] MEDS ORDERED: HEPATITIS B VIRUS VACCINE-PF 1 ML SYR IM ONE ×2 (19:40→23:00)
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
[2020-04-21 21:12] LABS: ABSOLUTE EOSINOPHILS # (AUTO) 0.2 10^3/uL (0.0-0.6); ABSOLUTE LYMPHOCYTES (AUTO) 2.8 10^3/uL (0.5-4.7); ABSOLUTE MONOCYTES (AUTO) 0.5 10^3/uL (0.1-1.4); ABSOLUTE NEUT (AUTO) 5.1 10^3/uL (1.7-8.2); BASOPHILS % (AUTO) 0.2 % (0-2); EOSINOPHILS % (AUTO) 2.3 % (0-6); LYMPHOCYTES % (AUTO) 32.7 % (13-45); MEAN CORPUSCULAR HEMOGLOBIN 28.8 pg (27.0-33.4); MEAN CORPUSCULAR HGB CONC 33.3 g/dL (32.0-36.0); MEAN CORPUSCULAR VOLUME 87 fl (80-97); MONOCYTES % (AUTO) 5.8 % (3-13); PLATELET COUNT 191 10^3/uL (150-450); RED BLOOD COUNT 4.85 10^6/uL (3.72-5.28); RED CELL DISTRIBUTION WIDTH 15.2 % (11.5-14.0); TOTAL CELLS COUNTED % (AUTO) 100 %; WHITE BLOOD COUNT 8.6 10^3/uL (4.0-10.5)
[2020-04-21 21:35] LABS: ALBUMIN 4.5 g/dL (3.5-5.0); ALKALINE PHOSPHATASE 63 U/L (38-126); ANION GAP 9 (5-19); ASPARTATE AMINO TRANSFERASE 27 U/L (14-36); BILIRUBIN,TOTAL 0.5 mg/dL (0.2-1.3); BLOOD UREA NITROGEN 13 mg/dL (7-20); CALCIUM 9.1 mg/dL (8.4-10.2); CARBON DIOXIDE 24 mmol/L (22-30); CHLORIDE 103 mmol/L (98-107); GLUCOSE 87 mg/dL (75-110); POTASSIUM 3.9 mmol/L (3.6-5.0); TOTAL PROTEIN 7.6 g/dL (6.3-8.2)
[2020-04-21 22:33] LABS: BACTERIA (WET MOUNT) 4+ BACTERIA SEEN; EPITHELIALS (WET MOUNT) 3+ EPITHELIALS SEEN; RBCS (WET MOUNT) FEW RBCS SEEN; T.VAGINALIS (WET MOUNT) NO TRICHOMONAS SEEN; WBCS (WET MOUNT) 3+ WBCS SEEN; YEAST (WET MOUNT) NO YEAST SEEN
[2020-04-22 00:01] LABS: CHLAM PCR NOT DETECTED (NOT DETECT)
[2020-04-22 00:49] VITALS: BP 110/87
[2020-04-23 05:37] LABS: HEPATITS B SURFACE ANTIGEN Negative (Negative)
[2020-04-23 07:06] LABS: HEPATITIS C VIRUS ANTIBODY <0.1 s/co ratio (0.0-0.9)
== END 2020-04-22 00:45 | disposition home or self-care (01) ==
LOC: ER 18:17
DX: N76.0 Acute vaginitis (principal); B96.89 Other specified bacterial agents as the cause of diseases classified elsewhere; N39.0 Urinary tract infection, site not specified; R30.0 Dysuria; R10.2 Pelvic and perineal pain; T76.21XA Adult sexual abuse, suspected, initial encounter; Z88.8 Allergy status to other drugs, medicaments and biological substances; J45.909 Unspecified asthma, uncomplicated
CPT/HCPCS: 99285; 96372; 36415; 87086; 87210; 84703; 85025; 86592; 80053; 86701; 87491; 87591; 80074; A9270; J3490; J0696; 87088